=== PATIENT | male | born 1995 | race African-American/Black ===

== ENCOUNTER 2017-06-28 18:34 | Emergency (ER) | payer SELFPAY ==
[~2017-06-28] VITALS: Ht 175.3 cm; Wt 93.0 kg
[2017-06-28] MEDS ORDERED: ACETAMINOPHEN 500 MG TABLET PO ONE (19:00)
[2017-06-28 19:24] VITALS: BP 129/92
[2017-06-28 19:36] LABS: INFLUENZA TYPE B POSITIVE FOR TYPE B (NEGATIVE)
== END 2017-06-28 19:53 | disposition home or self-care (01) ==
LOC: EMS 18:37
DX: J11.1 Influenza due to unidentified influenza virus with other respiratory manifestations (principal)
CPT/HCPCS: 87804; 99284

== ENCOUNTER 2017-10-08 13:49 | Emergency (ER) | payer SELFPAY ==
[~2017-10-08] VITALS: Ht 175.3 cm; Wt 97.7 kg
[2017-10-08] MEDS ORDERED: CYCLOBENZAPRINE HCL 10 MG TABLET PO ONE (18:00)
[2017-10-08] MEDS ORDERED: IBUPROFEN 800 MG TABLET PO ONE (18:00)
[2017-10-08 20:00] VITALS: BP 132/74
== END 2017-10-08 20:29 | disposition home or self-care (01) ==
LOC: EMS 13:50
DX: S13.4XXA Sprain of ligaments of cervical spine, initial encounter (principal); M62.830 Muscle spasm of back; V43.42XA Person boarding or alighting a car injured in collision with other type car, initial encounter; Y93.89 Activity, other specified; Y92.481 Parking lot as the place of occurrence of the external cause; Y99.8 Other external cause status
CPT/HCPCS: 72040; 99284